=== PATIENT | female | born 1945 | race American Indian/Alaskan Native ===

== ENCOUNTER 2017-07-18 06:25 | Day surgery (SDC) | payer MEDICARE, BC ==
[2017-07-11 09:33] VITALS: BMI 20.3
[2017-07-18] MEDS ORDERED: Lidocaine 2% Inj (20ml) ONE (08:06)
[2017-07-18] MEDS ORDERED: Propofol 10 mg/ml Inj (20 ML) ONE ×2 (08:06→08:15)
[2017-07-18] MEDS ORDERED: Sodium Chloride 0.9% 1,000 ML IV SCH (08:45)
[2017-07-18 09:48] VITALS: PULSE 71; RESP 18; TEMP 98.1; O2SAT 97
[2017-07-18 10:05] VITALS: BP 177/71
== END 2017-07-18 10:10 | disposition home or self-care (01) ==
LOC: ENDO 06:25
PROVIDERS: ATTEND Specialist
DX: Z12.11 Encounter for screening for malignant neoplasm of colon (principal); K57.30 Diverticulosis of large intestine without perforation or abscess without bleeding; D12.3 Benign neoplasm of transverse colon; D12.0 Benign neoplasm of cecum; K62.1 Rectal polyp; K64.8 Other hemorrhoids; I13.2 Hypertensive heart and chronic kidney disease with heart failure and with stage 5 chronic kidney disease, or end stage renal disease; N18.6 End stage renal disease; I50.9 Heart failure, unspecified; E03.9 Hypothyroidism, unspecified; Z99.2 Dependence on renal dialysis
CPT/HCPCS: 45380; 45385; 88305; J2704; J7040 ×2

== ENCOUNTER 2018-11-13 06:10 | Day surgery (SDC) | payer MEDICARE ==
[2017-07-11 09:33] VITALS: BMI 20.3
[2018-11-13] MEDS ORDERED: Propofol 10 mg/ml Inj (20 ML) ONE (08:10)
[2018-11-13] MEDS ORDERED: Etomidate 20 mg/10ml Inj IV ONE (08:11)
[2018-11-13] MEDS ORDERED: Sodium Chloride 0.9% 1,000 ML IV SCH (09:00)
[2018-11-13 10:03] VITALS: RESP 16; TEMP 97.9
[2018-11-13 10:04] VITALS: PULSE 56; O2SAT 97
[2018-11-13 10:41] VITALS: BP 122/44
== END 2018-11-13 10:39 | disposition home or self-care (01) ==
LOC: ENDO 06:10
PROVIDERS: ATTEND Specialist
DX: Z12.11 Encounter for screening for malignant neoplasm of colon (principal); D12.3 Benign neoplasm of transverse colon; K63.5 Polyp of colon; K57.30 Diverticulosis of large intestine without perforation or abscess without bleeding; K64.8 Other hemorrhoids; Z86.010 Personal history of colon polyps
CPT/HCPCS: 36415; 45385; 84132; 88305; J2001; J2704; J7030; J7040